=== PATIENT | male | born 1955 | race Caucasian/White ===

== ENCOUNTER 2019-03-25 19:38 | Emergency (ER) | payer OTHER ==
[2019-03-25] MEDS ORDERED: Glucagon* 1 MG VIAL IV ONE (20:02)
--- NOTE | 2019-03-25 20:13 | ED ---
Throat Pain/Nasal Congestion - HPI Summary HPI Summary: This patient is a 63 year old M presenting to ED with a chief complaint of food stuck in esophagus since 1400 today. Patient reports he was unable to swallow secretions or vomit. This has happened before about 6 months ago but resolved on its own. While the patient is in the ED, he thinks he swallowed the food. Twenty years ago, patient had an esophageal ring. Patient states he had it clipped and has been fine ever since. However, six months ago, patient had the symptoms again. Today, patient was eating a dry turkey leg when he felt a food impaction in his esophagous. Patient went to [facility], where he received glucagon, and was transferred here. The patient rates the pain 4/10 in severity. Symptoms aggravated by nothing. Symptoms alleviated by nothing. - History of Current Complaint Chief Complaint: EDForeignBodyEsophag Time Seen by Provider: 03/25/19 19:57 Hx Obtained From: Patient Onset/Duration: Sudden Onset, Lasting Hours - Since 1400, Resolved Severity: Mild Related History: Prior ENT Surgery - Allergies/Home Medications Allergies/Adverse Reactions: Allergies Allergy/AdvReac Type Severity Reaction Status Date / Time No Known Allergies Allergy Verified 03/25/19 19:43 PMH/Surg Hx/FS Hx/Imm Hx Endocrine/Hematology History: Denies: Hx Diabetes, Hx Thyroid Disease Cardiovascular History: Denies: Hx Angina, Hx Cardiomegaly, Hx Congestive Heart Failure, Hx Coronary Artery Disease, Hx Hypertension, Hx Pacemaker/ICD, Hx Peripheral Vascular Disease, Hx Rheumatic Fever, Hx Valvular Heart Disease, Other Cardiovascular Problems/Disorders Respiratory History: Denies: Hx Asthma, Hx Pulmonary Edema, Hx Pulmonary Embolism, Hx Sleep Apnea , Other Respiratory Problems/Disorders GI History: Reports: Hx Gastroesophageal Reflux Disease - ESPHO RING PLACED Denies: Hx Cirrhosis, Hx Crohn's Disease, Hx Hiatal Hernia, Hx Irritable Bowel, Hx Jaundice, Hx Ulcer, Other GI Disorders History: Denies: Hx Kidney Infection, Hx Kidney Stones, Other Problems/Disorders Musculoskeletal History: Denies: Hx Arthritis, Hx Bursitis, Hx Tendonitis, Other Musculoskeletal History Sensory History: Reports: Hx Contacts or Glasses Denies: Hx Cataracts, Hx Glaucoma, Hx Hearing Aid Opthamlomology History: Reports: Hx Contacts or Glasses Denies: Hx Cataracts, Hx Glaucoma Neurological History: Denies: Hx Headaches, Hx Migraine, Hx Nerve Disease, Hx Seizures, Other Neuro Impairments/Disorders Psychiatric History: Denies: Hx Anxiety, Hx Depression - Cancer History Hx Chemotherapy: No - Surgical History Surgery Procedure, Year, and Place: APPY 1974. PILONIDAL CYST 1974 Hx Anesthesia Reactions: No - Immunization History Immunizations Up to Date: Yes Infectious Disease History: No Infectious Disease History: Reports: Traveled Outside the [place] in Last 30 Days Denies: Hx Hepatitis - Family History Known Family History: Positive: Hypertension - Social History Alcohol Use: Daily Alcohol Amount: 2/GLASSES WINE A DAY Hx Substance Use: No Substance Use Type: Reports: None Hx Tobacco Use: Yes Smoking Status (MU): Former Smoker Review of Systems Negative: Fever ENT: Other - Foreign object in esophagus Gastrointestinal: Other - Unable to swallow secretions or vomit All Other Systems Reviewed And Are Negative: Yes Physical Exam - Summary Physical Exam Summary: Constitutional: Well-developed, Well-nourished, Alert. (-) Distressed Skin: Warm, Dry HENT: Normocephalic; Atraumatic Eyes: Conjunctiva normal Neck: Musculoskeletal ROM normal neck. (-) JVD, (-) Stridor, (-) Nuchal rigidity Cardio: Rhythm regular, rate normal, Heart sounds normal; Intact distal pulses; Radial pulses are 2+ and symmetric. (-) Murmur Pulmonary/Chest wall: Effort normal. Dec breath sounds LLL (reports chronic) (- ) Respiratory distress, (-) Wheezes, (-) Rales Abd: Soft, (-) tenderness, (-) Distension, (-) Guarding, (-) Rebound Musculoskeletal: (-) Edema Lymph: (-) Cervical adenopathy Neuro: Alert, Oriented x3 Psych: Mood and affect Normal Triage Information Reviewed: Yes Vital Signs On Initial Exam: Initial Vitals Temp Pulse Resp BP Pulse Ox 98.0 F 75 16 173/110 98 03/25/19 19:40 03/25/19 19:40 03/25/19 19:40 03/25/19 19:40 03/25/19 19:40 Vital Signs Reviewed: Yes Diagnostics - Vital Signs Vital Signs Temp Pulse Resp BP Pulse Ox 03/25/19 19:40 98.0 F 75 16 173/110 98 - Laboratory Lab Statement: Any lab studies that have been ordered have been reviewed, and results considered in the medical decision making process. - Radiology CXR Radiology Interpretation Completed By: ED Physician Summary of Radiographic Findings: Elevated left rakesh-diaphragm, pending official radiology report. Re-Evaluation - Re-Evaluation First Eval Re-Evaluation Time: 20:45 Comment: Chest x-ray with a left hemidiaphragm elevation, patient reports he has a history of decreased breath sounds in the left side, suspect this is chronic. EENT Course/Dx - Course Course Of Treatment: 63-year-old male with a history of esophageal ring status post resection who presents with esophageal impaction transfer from [facility]. -Symptoms have resolved upon arrival to the ED. Patient is status post 1 g of glucagon at [place]. We'll check a chest x-ray given GI follow-up. - Diagnoses Provider Diagnoses: Food impaction of esophagus - Provider Notifications Discussed Care Of Patient With: Wes Marks Time Discussed With Above Provider: 20:40 Instructed by Provider To: Other - Dr. Marks came and saw the patient, recommends he'll follow up outpatient. Discharge - Sign-Out/Discharge Documenting (check all that apply): Patient Departure - Discharge Patient Received Moderate/Deep Sedation with Procedure: No - Discharge Plan Condition: Stable Disposition: HOME Patient Education Materials: Food Impaction (ED) Referrals: Sumit Lopez MD [Medical Doctor] - Wes Marks MD [Medical Doctor] - Additional Instructions: You were seen in the emergency department for esophageal food impaction. This resolved upon arrival to the ED. Please follow up with GI If any studies were not completed at the time of discharge you will be called with the relevant results. Please follow up with your primary care doctor in next 2-3 days and return to emergency department for worsening or concerning symptoms. - Billing Disposition and Condition Condition: STABLE Disposition: Home - Attestation Statements Document Initiated by Scribe: Yes Documenting Scribe: Manuel Potter Provider For Whom Savannah is Documenting (Include Credential): Evelia Montes MD Scribe Attestation: Manuel Pompa, scribed for Evelia Montes MD on 03/25/19 at 2101. Scribe Documentation Reviewed: Yes Provider Attestation: The documentation as recorded by the Manuel morris accurately reflects the service I personally performed and the decisions made by me, Evelia Montes MD Status of Scribe Document: Viewed
[2019-03-25 21:23] VITALS: BP 144/95
--- NOTE | 2019-03-25 21:58 | CONS ---
GASTROENTEROLOGY CONSULT: DATE: 03/25/19 CONSULTING PHYSICIAN: Jane Tenorio, emergency room REASON FOR CONSULTATION: Food bolus impaction. 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 It was around [address] home and went to the [place] [facility]. The sensation continued. He was given glucagon and the sensation continued. [facility] was contacted and he was transferred over. The whole process took about 6 hours from the onset of the issue. He got in to the ER and as I was entering the room, said that it had passed. He requested water and demonstrated that he could drink it. Over the last 6 months, he has been having episodes similar to this but no more than 10 minutes and the foods have been typical dry ones. Possibly, 20 years ago, he had an endoscopy to deal with similar symptoms and he was symptom-free for at least 19 years. He denies any acid indigestion or heartburn, though will take some Rolaids about every 3 months. He had a chest pain evaluation 15 years ago and said he passed it and "it was determined it was gastro." PAST MEDICAL HISTORY: 1. Appendectomy, age 21. 2. Pilonidal cyst, age 22. 3. Back pain - lumbar laminectomy, year 2013. 4. 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 MEDICATIONS: None. ALLERGIES: None to meds. SOCIAL HISTORY: He is and enjoys camping at the [facility] especially [place]. REVIEW OF SYSTEMS: No history of seizure, syncope, TIA, CVA, hemoptysis, TB, palpitations, GA, hepatitis, jaundice, or rectal bleeding. EXAM: He is a healthy-appearing man, in no distress, very calm and without any distress. He had been spitting into a cup; he still has it sitting by his side. He has no icterus. He has no adenopathy. Lungs are clear. Heart sounds are regular. The abdomen is soft and nontender. Extremities show no edema. Neurologic is nonfocal. 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 He can be careful for a period of time, but elective endoscopy when he has been n.p.o. is indicated with likely balloon dilation. [id number]/[facility] #: [id number] MTDD
== END 2019-03-25 21:22 | disposition home or self-care (01) ==
LOC: ED 19:38
DX: T18.128A Food in esophagus causing other injury, initial encounter (principal); X58.XXXA Exposure to other specified factors, initial encounter; Y92.9 Unspecified place or not applicable; K21.9 Gastro-esophageal reflux disease without esophagitis; Z87.891 Personal history of nicotine dependence
CPT/HCPCS: 71045; 99282